=== PATIENT | female | born 1965 | race Caucasian/White ===

== ENCOUNTER 2017-03-07 14:29 | Emergency (ER) | payer OTHER ==
[~2017-03-07] VITALS: Ht 162.6 cm; Wt 70.5 kg
[2017-03-07] MEDS ORDERED: LETR2.5T2 (14:41)
[2017-03-07] MEDS ORDERED: OYSTER (14:41)
[2017-03-07] MEDS ORDERED: SYNT125T PO (14:41)
[2017-03-07 18:28] LABS: ANION GAP 6 MEQ/L (8-16); BLOOD UREA NITROGEN 14 MG/DL (7-18); CARBON DIOXIDE LEVEL 29 MEQ/L (21-32); CHLORIDE LEVEL 103 MEQ/L (98-107); CREATININE FOR GFR 0.75 MG/DL (0.55-1.02); GLOMERULAR FILTRATION RATE > 60.0 (>51); GLUCOSE, FASTING 97 MG/DL (70-105); POTASSIUM SERUM 3.7 MEQ/L (3.5-5.1); SODIUM LEVEL 138 MEQ/L (136-145)
[2017-03-07 18:38] LABS: BASO % 0.3 % (0.0-1.0); EOS % 0.5 % (0.0-3.0); IMMATURE GRANULOCYTE % 0.3 % (0-0); LYMPH # 1.3 10^3/uL (1.5-4.5); LYMPH % 16.8 % (24.0-44.0); MEAN CORPUSCULAR HEMOGLOBIN 28.5 pg (27.0-33.0); MEAN CORPUSCULAR HGB CONC 31.9 g/dl (32.0-36.5); MEAN CORPUSCULAR VOLUME 89.2 fl (80.0-96.0); MONO # 0.4 10^3/uL (0.0-0.8); MONO % 5.6 % (0.0-5.0); NEUTROPHILS % 76.5 % (36.0-66.0); PLATELET COUNT, AUTOMATED 322 10^3/uL (150-450); RED CELL DISTRIBUTION WIDTH 13.8 % (11.5-14.5); WHITE BLOOD COUNT 7.8 10^3/uL (4.0-10.0)
[2017-03-07 18:41] LABS: ADD MORPHOLOGY? YES
[2017-03-07 19:22] LABS: PLATELET CLUMPS SMALL AMT
[2017-03-07 19:37] LABS: FREE T4 1.03 NG/DL (0.76-1.46)
--- NOTE | 2017-03-07 19:40 | REPUSA ---
HISTORY: Trauma. TECHNIQUE: Multiple thin section helically-acquired axially-displayed and helically acquired coronall y displayed computed tomographic images of the face are obtained from the mandible through the fronta l sinuses, with images obtained at soft tissue and bone window. 2D reformatted images were performed. FINDINGS: Normal bony mineralization. No fractures. Normal orbits. Normal, clear paranasal sinuses. Normal oral and nasal cavities. Normal infratemporal fossa and deep parapharyngeal spaces with normal muscles of mastication. Normal parotid and submandibular glands. IMPRESSION: Normal examination of the face. Thank you for your kind referral of this patient
[2017-03-07 20:25] VITALS: BP 151/67
--- NOTE | 2017-03-07 20:59 | ECGEPIP ---
Stationary ECG Study [facility] - ED Test Date: 2017-03-07 Pat Name: CARROLL FINLEY Department: Room: - Gender: F Cell Builder: KEISHA : 1965 Requested By: BERNARDO Simmons Order Number: [id number] Reading MD: Mague Eduardo Measurements Intervals Hardy Rate: 54 P: 11 GA: 174 QRS: 36 QRSD: 84 T: 45 QT: 429 QTc: 408 Interpretive Statements SINUS BRADYCARDIA NSTTW ABNORMALITY NO PRIOR FOR COMPARISON Electronically Signed On 03-07-2017 20:59:33 EDT by Mague Eduardo
== END 2017-03-07 20:30 | disposition home or self-care (01) ==
LOC: M ED 14:29
DX: R55 Syncope and collapse (principal); E03.9 Hypothyroidism, unspecified; Z79.899 Other long term (current) drug therapy

== ENCOUNTER → 2017-03-27 | Outpatient (CLI) | payer OTHER ==
[~2017-03-27] MED LIST: LETR2.5T2; OYSTER; SYNT125T PO
--- NOTE | 2017-03-29 18:27 | ECHO ---
DATE OF STUDY: 03/27/2017 REFERRING PHYSICIAN: PHAM Mackenzie INDICATION: Syncope. HEIGHT: 160 cm. WEIGHT: 68.9 kg. 2D MEASUREMENTS: Left atrium 3.7 cm Ventricular septum 1.02 cm Posterior wall 1.09 cm Left ventricle diastole 4.5 cm Aortic root 2.7 cm LVOT 1.9 cm Inferior vena cava 1.8 cm DOPPLER MEASUREMENTS: Aortic valve velocity 160 cm/s LVOT velocity 83.5 cm/s LVOT VTI 22.4 cm Mitral E velocity 82.9 cm/s Mitral A velocity 78.5 cm/s Mitral deceleration time 208 ms. Pulmonary artery systolic pressure 36 mmHg. MITRAL ANNULAR TISSUE DOPPLER: E prime septal 5.9 cm/s E prime lateral 17.0 cm/s DESCRIPTION: Rhythm was sinus. No pericardial effusion. Moderately technically difficulty echocardiogram. This was a 2D, M-mode, color flow Doppler and pulse wave Doppler examination and included mitral annular tissue Doppler. CONCLUSIONS: 1. Normal left ventricle internal dimensions and wall thickness. Normal regional LV wall motion and wall thickening. Normal LV diastolic function. LVEF 60% by visual estimate. Normal LV systolic function. 2. Suggestive of mild elevation of pulmonary artery systolic pressure. 3. Otherwise normal appearing echocardiogram Doppler.
== END ==
LOC: M CARPUL 10:06
PROVIDERS: ATTEND Nurse Practitioner Family
DX: R55 Syncope and collapse (principal)

== ENCOUNTER → 2018-05-12 | Outpatient (CLI) | payer OTHER | LOC: M WHC 09:07 | DX: M85.80 Other specified disorders of bone density and structure, unspecified site (principal); Z79.899 Other long term (current) drug therapy | CPT/HCPCS: 77080 ==

== ENCOUNTER → 2019-11-18 | Outpatient (REF) | payer OTHER ==
[~2019-11-18] MED LIST changes: +ATOR1TAB21 PO; +JANU50TA25 PO; +ZEST1TAB5 PO
[2019-11-18 15:55] LABS: CREATININE, URINE 80.9 MG/DL; MALB URINE SIEMENS 7.6 MG/L; MAU/CREAT RATIO 9.3 MCG/MG (0.0-30.0)
== END ==
LOC: M LAB REF 14:54
PROVIDERS: ATTEND Nurse Practitioner Family
DX: E10.65 Type 1 diabetes mellitus with hyperglycemia (principal)